=== PATIENT | female | born 1985 | race Caucasian/White ===

== ENCOUNTER 2017-08-19 18:21 | Emergency (ER) | payer BC ==
[~2017-08-19] VITALS: Ht 162.6 cm; Wt 65.2 kg
[2017-08-19] MEDS ORDERED: SODIUM CHLORIDE 0.9% 1,000 ML IV ONE (18:54)
[2017-08-19] MEDS ORDERED: FAMOTIDINE 20 MG/2 ML IVP ONE (19:00)
[2017-08-19] MEDS ORDERED: MORPHINE SULFATE 4 MG/ML, 1ML IVPush PRN (19:00)
[2017-08-19] MEDS ORDERED: SODIUM CHLORIDE 0.9% 1,000ML IVBOLUS ONE (19:00)
[2017-08-19] MEDS ORDERED: ONDANSETRON 2MG/ML, 2ML IVPush ONE (19:00)
[2017-08-19 19:08] LABS: HEMATOCRIT 43.2 % (34.6-47.8); HEMOGLOBIN 14.5 g/dL (11.7-16.4); WHITE BLOOD COUNT 8.7 x10^3/uL (3.4-10)
[2017-08-19 19:21] LABS: ASPARTATE AMINO TRANSFERASE 11 U/L (15-37); BLOOD UREA NITROGEN 8 mg/dL (7-18)
[2017-08-19] MEDS ORDERED: MORPHINE SULFATE 4 MG/ML, 1ML ONE (19:33)
[2017-08-19] MEDS ORDERED: ONDANSETRON 2MG/ML, 2ML ONE (19:33)
[2017-08-19] MEDS ORDERED: FAMOTIDINE 20 MG/2 ML ONE (19:34)
[2017-08-19 20:30] VITALS: BP 124/62
== END 2017-08-19 21:02 | disposition home or self-care (01) ==
LOC: ED 20:56
DX: R10.84 Generalized abdominal pain (principal); I10 Essential (primary) hypertension; Z90.49 Acquired absence of other specified parts of digestive tract
CPT/HCPCS: 36415; 80053; 81003; 83690; 84703; 85025; 96361; 96374; 96375; 99284; J2405; J7030; S0028

== ENCOUNTER 2017-08-22 09:10 | Emergency (ER) | payer BC ==
[~2017-08-22] VITALS: Ht 160 cm; Wt 66.5 kg
[2017-08-22] MEDS ORDERED: SODIUM CHLORIDE 0.9% 1,000ML IVBOLUS ONE (10:00)
[2017-08-22] MEDS ORDERED: ONDANSETRON 2MG/ML, 2ML IVPush ONE (10:00)
[2017-08-22] MEDS ORDERED: MORPHINE SULFATE 4 MG/ML, 1ML IVPush PRN (10:00)
[2017-08-22] MEDS ORDERED: ONDANSETRON 2MG/ML, 2ML ONE (10:03)
[2017-08-22] MEDS ORDERED: MORPHINE SULFATE 4 MG/ML, 1ML ONE (10:03)
[2017-08-22] MEDS ORDERED: FAMOTIDINE 20 MG/2 ML ONE (10:04)
[2017-08-22 10:17] LABS: HEMATOCRIT 41.4 % (34.6-47.8); HEMOGLOBIN 13.9 g/dL (11.7-16.4); WHITE BLOOD COUNT 8.7 x10^3/uL (3.4-10)
[2017-08-22 10:31] LABS: PATH.CAST-FLAG NOT PRESENT; SPERM-FLAG NOT PRESENT; SRC-FLAG NOT PRESENT; XTAL-FLAG NOT PRESENT; YLC-FLAG NOT PRESENT
[2017-08-22] MEDS ORDERED: FAMOTIDINE 20 MG/2 ML IVP ONE (11:00)
[2017-08-22] MEDS ORDERED: SODIUM CHLORIDE 0.9% 1,000 ML IV ONE (11:00)
[2017-08-22 11:11] LABS: BLOOD UREA NITROGEN 8 mg/dL (7-18)
[2017-08-22 11:19] LABS: ASPARTATE AMINO TRANSFERASE 11 U/L (15-37)
[2017-08-22 11:43] VITALS: BP 104/63
[2017-08-22] MEDS ORDERED: MAGNESIUM CITRATE 300ML ORAL SOL PO ONE (12:00)
== END 2017-08-22 12:05 | disposition home or self-care (01) ==
LOC: ED 09:35
DX: K59.00 Constipation, unspecified (principal); R10.12 Left upper quadrant pain
CPT/HCPCS: 36415; 74022; 80053; 81001; 83690; 84703; 85025; 96361; 96374; 96375; 99285; J2405; J7030; 96372; S0028

== ENCOUNTER 2018-06-29 03:42 | Inpatient (IN) | payer BC, OTHER ==
[~2018-06-29] VITALS: Ht 160 cm; Wt 66.8 kg
[2018-06-29] MEDS ORDERED: LORazepam 1MG TABLET PO ONE (04:30)
[2018-06-29 04:47] LABS: BASOPHILS # (AUTO) 0.03 x10^3/uL (0-0.1); BASOPHILS % (AUTO) 0 % (0-1); EOSINOPHILS # (AUTO) 0.07 x10^3/uL (0-0.4); EOSINOPHILS % (AUTO) 1 % (1-7); LYMPHOCYTES # (AUTO) 3.07 x10^3/uL (1-3.4); LYMPHOCYTES % (AUTO) 31 % (22-44); MD NO; MEAN CORPUSCULAR HEMOGLOBIN 30.2 pg (27.0-34.8); MEAN CORPUSCULAR HGB CONC 34.2 g/dL (32.4-35.8); MEAN CORPUSCULAR VOLUME 88.4 fL (80-100); MEAN PLATELET VOLUME 8.6 fL (7.4-10.4); MONOCYTES # (AUTO) 0.39 x10^3/uL (0.2-0.8); MONOCYTES % (AUTO) 4 % (2-9); NEUTROPHILS # (AUTO) 6.29 x10^3/uL (1.8-6.8); NEUTROPHILS % (AUTO) 64 % (42-75); PLATELET COUNT 345 x10^3/uL (130-400); RED BLOOD COUNT 4.89 x10^6/uL (3.82-5.3); RED CELL DISTRIBUTION WIDTH 12.7 % (9.6-15.2)
[2018-06-29] MEDS ORDERED: LORazepam 1MG TABLET ONE (04:50)
[2018-06-29 05:01] LABS: ALBUMIN 3.7 g/dL (3.4-5.0); ANION GAP 6 mmol/L (5-15); CALCIUM 8.4 mg/dL (8.5-10.1); CHLORIDE 107 mmol/L (98-107)
[2018-06-29 05:02] LABS: MICROSCOPIC NOT IND
[2018-06-29 05:04] LABS: ALANINE AMINOTRANSFERASE 25 U/L (12-78); ALKALINE PHOSPHATASE 85 U/L (45-117); BILIRUBIN,TOTAL 0.5 mg/dL (0.2-1.0); CREATININE 0.94 mg/dL (0.55-1.02); TOTAL PROTEIN 6.9 g/dL (6.4-8.2)
[2018-06-29 05:06] LABS: CULTURE INDICATED? NO
[2018-06-29 05:14] LABS: ACETAMINOPHEN < 2 mcg/mL (10-30); SALICYLATE LEVEL < 1.7 mg/dL (2.8-20.0)
[2018-06-29 05:21] LABS: AMPHETAMINE SCREEN, URINE Negative (Negative); BARBITURATE SCREEN, URINE Negative (Negative); BENZODIAZEPINE SCREEN, URINE Negative (Negative); CANNABINOID SCREEN, URINE Negative (Negative); COCAINE SCREEN, URINE Negative (Negative); METHADONE SCREEN, URINE Negative (Negative); OPIATE SCREEN, URINE Negative (Negative)
[2018-06-29] MEDS ORDERED: ASPIRIN 325 MG TABLET PO SCH (06:30)
[2018-06-29] MEDS ORDERED: ENOXAPARIN 40 MG/0.4 ML ONE (07:15)
[2018-06-29] MEDS ORDERED: ASPIRIN 325 MG TABLET ONE (07:15)
[2018-06-29] MEDS: ENOXAPARIN 40 MG/0.4 ML SQ SCH (07:20)
[2018-06-29 07:26] LABS: TROPONIN I < 0.015 ng/mL (0.000-0.045)
[2018-06-29] MEDS ORDERED: ENALAPRILAT 1.25 MG/ML, 2ML IV PRN (07:30)
[2018-06-29] MEDS ORDERED: NITROGLYCERIN 0.4 MG BOTTLE (25 TABS) SL PRN (07:30)
[2018-06-29] MEDS ORDERED: CYCLOBENZAPRINE 10 MG TABLET PO PRN (07:30)
[2018-06-29 07:55] LABS: HEMOGLOBIN A1C 5.4 % (4.2-6.3)
[2018-06-29 08:00] VITALS: BP 129/84
[2018-06-29 09:00] VITALS: BP 147/83
[2018-06-29] MEDS ORDERED: ASPIRIN 325 MG TABLET PO ONE (09:00)
[2018-06-29] MEDS ORDERED: QUETIAPINE 25MG TABLET PO SCH (09:00)
[2018-06-29] MEDS: OMEPRAZOLE 20 MG CAPSULE.DR PO SCH (10:27)
[2018-06-29] MEDS: POTASSIUM CHLORIDE 20 MEQ TAB.ER.PRT PO SCH ×2 (10:27→17:40)
[2018-06-29] MEDS: CALCIUM CARBONATE 500 MG TABLET PO SCH ×2 (10:27→21:26)
[2018-06-29 12:58] LABS: TROPONIN I < 0.015 ng/mL (0.000-0.045)
[2018-06-29 16:59] VITALS: BP 120/85
[2018-06-29 19:29] LABS: TROPONIN I < 0.015 ng/mL (0.000-0.045)
[2018-06-29 19:41] VITALS: BP 153/98
[2018-06-29] MEDS ORDERED: ZIPRASIDONE 20 MG INJ IM ONE (20:30)
[2018-06-29] MEDS: ATORVASTATIN 40 MG TABLET PO SCH (21:26)
[2018-06-30 01:34] VITALS: BP 100/66
[2018-06-30 04:49] LABS: BASOPHILS # (AUTO) 0.08 x10^3/uL (0-0.1); BASOPHILS % (AUTO) 1 % (0-1); EOSINOPHILS # (AUTO) 0.09 x10^3/uL (0-0.4); EOSINOPHILS % (AUTO) 1 % (1-7); LYMPHOCYTES # (AUTO) 2.69 x10^3/uL (1-3.4); LYMPHOCYTES % (AUTO) 40 % (22-44); MD NO; MEAN CORPUSCULAR HEMOGLOBIN 30.2 pg (27.0-34.8); MEAN CORPUSCULAR VOLUME 88.9 fL (80-100); MONOCYTES # (AUTO) 0.33 x10^3/uL (0.2-0.8); MONOCYTES % (AUTO) 5 % (2-9); NEUTROPHILS % (AUTO) 52 % (42-75); PLATELET COUNT 300 x10^3/uL (130-400); RED BLOOD COUNT 4.77 x10^6/uL (3.82-5.3); RED CELL DISTRIBUTION WIDTH 12.6 % (9.6-15.2)
[2018-06-30 04:54] LABS: ALANINE AMINOTRANSFERASE 23 U/L (12-78); ALBUMIN 3.2 g/dL (3.4-5.0); ANION GAP 8 mmol/L (5-15); CALCIUM 8.4 mg/dL (8.5-10.1); CHLORIDE 107 mmol/L (98-107)
[2018-06-30 05:05] LABS: ALKALINE PHOSPHATASE 71 U/L (45-117); BILIRUBIN,TOTAL 0.8 mg/dL (0.2-1.0); TOTAL PROTEIN 6.4 g/dL (6.4-8.2)
[2018-06-30] MEDS: OMEPRAZOLE 20 MG CAPSULE.DR PO SCH (06:38)
[2018-06-30] MEDS: ENOXAPARIN 40 MG/0.4 ML SQ SCH (06:38)
[2018-06-30 07:21] VITALS: BP 116/75
[2018-06-30] MEDS: ASPIRIN 81 MG TABLET EC PO SCH (08:08)
[2018-06-30] MEDS: CALCIUM CARBONATE 500 MG TABLET PO SCH ×2 (08:09→20:38)
[2018-06-30] MEDS: POTASSIUM CHLORIDE 20 MEQ TAB.ER.PRT PO SCH ×2 (08:09→17:47)
[2018-06-30] MEDS: ACETAMINOPHEN 325 MG TABLET PO PRN ×2 (08:22→20:38)
[2018-06-30 10:51] LABS: FOLATE LEVEL 14.3 ng/mL (3.1-17.5)
[2018-06-30] MEDS ORDERED: REGADENOSON 0.4 MG/5 ML SYRINGE ONE (11:36)
[2018-06-30 14:17] VITALS: BP 120/80
[2018-06-30 20:35] VITALS: BP 128/87
[2018-06-30] MEDS: ATORVASTATIN 40 MG TABLET PO SCH (20:38)
[2018-07-01 01:21] VITALS: BP 117/85
[2018-07-01] MEDS: ACETAMINOPHEN 325 MG TABLET PO PRN (02:34)
[2018-07-01 06:32] VITALS: BP 109/73
[2018-07-01] MEDS: ASPIRIN 81 MG TABLET EC PO SCH (06:35)
[2018-07-01] MEDS: ENOXAPARIN 40 MG/0.4 ML SQ SCH (06:35)
[2018-07-01] MEDS: OMEPRAZOLE 20 MG CAPSULE.DR PO SCH (09:19)
[2018-07-01] MEDS: POTASSIUM CHLORIDE 20 MEQ TAB.ER.PRT PO SCH (09:19)
[2018-07-01] MEDS: CALCIUM CARBONATE 500 MG TABLET PO SCH (09:19)
[2018-07-01 13:27] VITALS: BP 122/87
== END 2018-07-01 15:55 | DRG 392 ==
LOC: ED 06:42 → EDIP 07:00 → 5SO 08:29 → 3NE 07-01
PROVIDERS: ADMIT Internal Medicine; ATTEND Internal Medicine
DX: K21.9 Gastro-esophageal reflux disease without esophagitis (principal); R45.851 Suicidal ideations; F23 Brief psychotic disorder; R07.89 Other chest pain; F32.9 Major depressive disorder, single episode, unspecified; R73.9 Hyperglycemia, unspecified; F41.9 Anxiety disorder, unspecified; E87.6 Hypokalemia; E83.51 Hypocalcemia; I10 Essential (primary) hypertension; Z79.82 Long term (current) use of aspirin; Z79.899 Other long term (current) drug therapy
CPT/HCPCS: 36415; 70450; 71045; 78452; 80053; 80307; 80329; 81003; 81025; 82140; 82607; 82746; 83036; 83690; 83735; 84443; 84484; 85025; 93005; 93017; 96372; 99285; J1650; J2785; J3486; A9502; C9898; G0480

== ENCOUNTER 2019-01-31 00:09 | Emergency (ER) | payer OTHER ==
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
[2019-01-31] MEDS ORDERED: LORazepam 1MG TABLET PO ONE (01:00)
[2019-01-31] MEDS ORDERED: LORazepam 1MG TABLET ONE (01:09)
[2019-01-31 01:11] VITALS: BP 128/77
--- NOTE | 2019-01-31 01:11 | NUR ---
PT MEDICATED PER eMAR, APPEARS MORE CALM AT THIS TIME
[2019-01-31] MEDS ORDERED: RISP1TAB45 PO (01:29)
[2019-01-31] MEDS ORDERED: PRAZ2CAP2 PO (01:30)
--- NOTE | 2019-01-31 01:33 | NUR ---
MED REC DONE, PT STATES FEELING BETTER
--- NOTE | 2019-01-31 01:49 | NUR ---
Patient/Caregiver given discharge instructions and they have confirmed that they understand the instructions. Patient ambulatory with steady gait.
== END 2019-01-31 01:51 | disposition home or self-care (01) ==
LOC: ED 01:49
DX: F41.1 Generalized anxiety disorder (principal); I10 Essential (primary) hypertension
CPT/HCPCS: 93005; 99284

== ENCOUNTER 2020-11-14 13:26 | Emergency (ER) | payer OTHER ==
[~2020-11-14] VITALS: Ht 170.2 cm; Wt 75.5 kg
[~2020-11-14 13:26] MED LIST: PRAZ2CAP2 PO; RISP1TAB45 PO
[2020-11-14] MEDS ORDERED: ONDANSETRON ODT 4 MG ONE ×2 (13:59→14:17)
[2020-11-14] MEDS ORDERED: KETOROLAC 30 MG/1 ML ONE (14:00)
[2020-11-14] MEDS ORDERED: ONDANSETRON ODT 4 MG PO ONE (14:00)
[2020-11-14] MEDS ORDERED: KETOROLAC 30 MG/1 ML IM ONE (14:00)
--- NOTE | 2020-11-14 14:10 | NUR ---
PT IS A 35F COMPLAINING OF HEADACHE, NAUSEA, AND ABDOMINAL PAIN X 3 DAYS. PATIENT IN NO APPARENT RESPIRATOTY DISTRESS, RESTING IN A POSITION OF COMFORT. CALL LIGHT WITHIN REACH, NO FAMILY AT BEDSIDE. COVID SWAB COLLECTED PER MD ORDER.
[2020-11-14 14:13] LABS: BASOPHILS % (AUTO) 1 % (0-1); EOSINOPHILS % (AUTO) 1 % (1-7); LYMPHOCYTES % (AUTO) 24 % (22-44); MEAN CORPUSCULAR HEMOGLOBIN 29.6 pg (27.0-34.8); MEAN PLATELET VOLUME 7.8 fL (7.4-10.4); MONOCYTES % (AUTO) 4 % (2-9); NEUTROPHILS % (AUTO) 71 % (42-75); PLATELET COUNT 349 x10^3/uL (130-400); RED BLOOD COUNT 4.91 x10^6/uL (3.82-5.3); RED CELL DISTRIBUTION WIDTH 12.8 % (9.6-15.2)
[2020-11-14 14:15] LABS: MD NO
[2020-11-14 14:24] LABS: ALBUMIN 3.7 g/dL (3.4-5.0); ANION GAP 7 mmol/L (5-15); CALCIUM 8.8 mg/dL (8.5-10.1); CHLORIDE 105 mmol/L (98-107); CREATININE 0.94 mg/dL (0.55-1.02)
[2020-11-14 14:29] LABS: ALKALINE PHOSPHATASE 113 U/L (45-117); BILIRUBIN,TOTAL 0.4 mg/dL (0.2-1.0); TOTAL PROTEIN 7.4 g/dL (6.4-8.2)
[2020-11-14 14:34] LABS: ALANINE AMINOTRANSFERASE 80 U/L (12-78)
--- NOTE | 2020-11-14 15:44 | NUR ---
RESIDENTIAL CARE FACILITY MANAGER #[id number] USED FOR NURSING ASSESSMENT AND DISCHARGE TEACHING AND INSTRUCTION.
[2020-11-14 15:54] VITALS: BP 134/86
--- NOTE | 2020-11-14 15:54 | NUR ---
Patient/Caregiver given discharge instructions and they have confirmed that they understand the instructions.[employer] junior php developer #[id number] used in discharge teaching and instruction. Patient ambulatory with steady gait.
== END 2020-11-14 15:57 | disposition home or self-care (01) ==
LOC: ED 15:50
DX: J06.9 Acute upper respiratory infection, unspecified (principal); R06.00 Dyspnea, unspecified; Z20.828 Contact with and (suspected) exposure to other viral communicable diseases; R51.9 Headache, unspecified; R11.10 Vomiting, unspecified; I10 Essential (primary) hypertension; Z90.49 Acquired absence of other specified parts of digestive tract; Z98.51 Tubal ligation status; Z90.89 Acquired absence of other organs
CPT/HCPCS: 36415; 71045; 80053; 84703; 85025; 87635; 96372; 99284; J1885; Q0162; 99283

== ENCOUNTER 2021-01-10 14:15 | Emergency (ER) | payer OTHER ==
[~2021-01-10] VITALS: Ht 162.6 cm; Wt 77.0 kg
[2021-01-10] MEDS ORDERED: PROCHLORPERAZINE 5 MG/ML, 2ML IVPush ONE (15:00)
[2021-01-10] MEDS ORDERED: PLEASE ENTER HEIGHT AND WEIGHT MC SCH (15:00)
[2021-01-10] MEDS ORDERED: DIPHENHYDRAMINE 50 MG/ML, 1ML IVPush ONE (15:00)
[2021-01-10] MEDS ORDERED: SODIUM CHLORIDE 0.9% 1,000ML IVBOLUS ONE (15:00)
--- NOTE | 2021-01-10 15:06 | NUR ---
PT C/O ATKINS X2 DAYS, PT REPORTS LIGHT SENSITIVITY AND NAUSEA. PT ON VITALS MONITORS, CALL LIGHT WITHIN REACH.
[2021-01-10] MEDS ORDERED: DIPHENHYDRAMINE 50 MG/ML, 1ML ONE (15:14)
[2021-01-10] MEDS ORDERED: PROCHLORPERAZINE 5 MG/ML, 2ML ONE (15:14)
[2021-01-10] MEDS ORDERED: RISP1TAB90 PO (15:42)
[2021-01-10] MEDS ORDERED: VENL75TA PO (15:42)
--- NOTE | 2021-01-10 16:39 | NUR ---
PT REPORTS FEELING BETTER, STATES ATKINS HAS SUBSIDED.
[2021-01-10 16:47] VITALS: BP 121/68
== END 2021-01-10 17:01 | disposition home or self-care (01) ==
LOC: ED 16:45
DX: G43.001 Migraine without aura, not intractable, with status migrainosus (principal); R11.2 Nausea with vomiting, unspecified; H53.141 Visual discomfort, right eye; I10 Essential (primary) hypertension; Z90.89 Acquired absence of other organs; Z90.49 Acquired absence of other specified parts of digestive tract; Z98.51 Tubal ligation status
CPT/HCPCS: 96361; 96374; 96375; 99284; J0780; J1200; J7030